=== PATIENT | male | born 1995 | race Two or more races ===

== ENCOUNTER 2017-04-21 03:01 | Emergency (ER) | payer SELFPAY ==
[~2017-04-21] VITALS: Ht 182.9 cm; Wt 68.0 kg
--- NOTE | 2017-04-21 03:13 | NUR ---
PT BIBA#89, PT PER EMS HAD A WITNESSED SEIZURE, BS IN FIELD WAS 127. PT AOX3 RR EVEN AND UNLABORED. NO SOB NOTED. NAD NOTED. NO NVD AT THIS TIME. PT GOWNED AND PLACED ON MONITOR. PT NOT DIAPHORETIC. DR. POLO AT BEDSIDE FOR EVAL. PT PLACED ON SEIZURE PRECAUTIONS
[2017-04-21] MEDS ORDERED: LEVETIRACETAM (500MG) 500 MG/5 ML VIAL IV ONE (03:34)
[2017-04-21] MEDS: LEVETIRACETAM (500MG) 1,000 MG in IV NS 0.9% 100 ML IV SCH (03:47)
[2017-04-21 03:51] LABS: CALCIUM, SERUM 9.2 mg/dL (8.5-10.1); CREATININE 0.7 mg/dL (0.6-1.3); POTASSIUM 4.2 mmol/L (3.5-5.1)
[2017-04-21 03:56] LABS: ALBUMIN 4.3 g/dL (3.4-5.0); BILIRUBIN,TOTAL 0.5 mg/dL (0.2-1.0); TOTAL PROTEIN, SERUM 7.9 g/dL (6.4-8.2)
--- NOTE | 2017-04-21 04:22 | NUR ---
DR. POLO SPOKE TO PT REGARDING RESULTS.
--- NOTE | 2017-04-21 04:33 | NUR ---
IV removed. Catheter intact and site benign. Pressure and 4x4 applied to site. No bleeding noted. Patient discharged to home in stable condition. Written and verbal after care instructions given. Patient verbalizes understanding of instruction. ambulatory with a steady gait. instructed pt not to drive. pt verbalize understanding.
[2017-04-21 04:34] VITALS: BP 110/89
== END 2017-04-21 04:36 | disposition home or self-care (01) ==
LOC: ER 03:04
DX: G40.409 Other generalized epilepsy and epileptic syndromes, not intractable, without status epilepticus (principal)
CPT/HCPCS: 36415; 80053-TC; A4606; J1953; J7030; Z7610